=== PATIENT | female | born 1965 | race Caucasian/White ===

== ENCOUNTER 2021-03-30 09:08 | Inpatient (IN) | payer OTHER, SELFPAY ==
[2021-03-30] VITALS (10 sets, daily range): BP systolic 115–156; BP diastolic 76–86; PULSE 72–97; RESP 18–22; TEMP 36.9–38.9; O2SAT 85–99; BMI 41.3
--- NOTE | 2021-03-30 09:39 | CT_ITS ---
WS: [id number] CTA OF THE CHEST WITH PULMONARY EMBOLISM PROTOCOL TECHNIQUE: High-resolution contrast enhanced CTA of the chest with coronal and sagittal reformatted i mages with pulmonary embolism protocol. MIP images are also reviewed. CLINICAL INFORMATION: dyspnea COMPARISON: None. DLP: 506.[address] scans at [facility] use at least one of these dose optimization techniques: automated e xposure control; mA and/or kV adjustment per patient size (includes targeted exams where dose is matc hed to clinical indication); or iterative reconstruction. FINDINGS: Proximal main pulmonary arteries are normal. Normal segmental and subsegmental pulmonary arteries. Di stal most pulmonary arteries not well evaluated due to breathing artifact and body habitus. Cardiomeg maureen. Shallow inspiration. Bilateral patchy groundglass infiltrates mainly in the perihilar and upper lobe distribution suspicio us for COVID 19 pneumonia. Recommend correlation for viral pneumonia. No focal consolidation or pleural fluid. Bilateral perihilar bronchovascular thickening. Nodular left thyroid. No mediastinal or hilar lymphadenopathy. No axillary lymphadenopathy. Adrenal glands are normal. Hepatomegaly. Diffuse fatty infiltration. Cholecystectomy clips. Splenomeg maureen. Small esophageal hiatal hernia. Mild thoracic curve. Hypertrophic changes thoracic spine. CT/CT angio chest PE protcl [id number] IMPRESSION: 1. No evidence of pulmonary embolus. 2. Bilateral groundglass infiltrates suspicious for COVID 19 Pneumonia. No foc al pneumonia or pleural fluid. 3. Shallow inspiration. Cardiomegaly. 4. Hepatomegaly with diffuse fatty infiltration and splenomegaly.
--- NOTE | 2021-03-30 09:40 | XR_ITS ---
WS: [id number] Exam: XR chest 1V portable [id number] Date/Time of Exam: 03/30/2021 9:46 AM Reason For Exam: dyspnea/cough No priors. Patchy airspace infiltrates seen throughout both lungs most prevalent on the right. Cardiomediastinal silhouette is unremarkable for technique. No pleural effusion or pneumothorax. Bony structures are i ntact. XR/XR chest 1V portable [id number] IMPRESSION: 1. Patchy airspace infiltrates seen throughout both lungs suggesting acute pneu monia. The pattern is nonspecific but this could be seen with Covid pneumonia.
--- NOTE | 2021-03-30 09:41 | ECG_ITS ---
[facility] Test Date: 2021-03-30 Pat Name: Mary Elise Department: Room: Gender: Female Vp [employer]: : 1965 Requested By: Thomas Monroy Order Number: [id number] Fang MD: Barbra Rees M.D. Measurements Intervals [place] Rate: 84 P: 36 OH: 179 QRS: -10 QRSD: 94 T: 29 QT: 360 QTc: 426 Interpretive Statements SINUS RHYTHM LOW QRS VOLTAGE IN PRECORDIAL LEADS [QRS DEFLECTION < 1.0 mV IN CHEST LEADS] POSSIBLE ANTERIOR MYOCARDIAL INFARCTION , PROBABLY OLD [30 ms Q WAVE IN V3/V4, OR R < 0.2 mV IN V4] POSSIBLE INFERIOR MYOCARDIAL INFARCTION , PROBABLY OLD [30 ms Q WAVE IN II/aVF] No previous ECG available for comparison Electronically Signed On 03-30-2021 22:42:59 MOGUL OPERATOR by Barbra Rees M.D. [id number]
--- NOTE | 2021-03-30 09:47 | ED_ITS ---
HPI - COVID General: Chief Complaint: ER Hold Stated Complaint: SOB Time Seen by Provider: 03/30/21 09:30 Triage information: Has fever, cough or shortness of breath . Exposure to COVID + person last 14 days History of Present Illness: HPI Narrative: 55-year-old female presents emergency room with increasing shortness of breath. Patient had onset of symptoms 1 week ago 5 days ago tested positive for Covid. Initially she did not require oxygen on a follow-up visit patient did require oxygen. She has a history of atrial fibrillation and is also on flecainide. She denies any chest pain or tightness. She has been monitoring her saturations at home. She has noted saturations in the 80s while at home. On arrival here she noted to be 102.5 oxygen saturation of 85% on room air. She has other typical Covid symptoms including myalgias anosmia initial diarrhea which has resolved. complaint: known COVID positive Prior testing date: 03/24/21 COVID 19 common symptoms: positive fever(s), chills, cough, non-productive cough, dyspnea, fatigue, body aches, headache(s), loss of sense of smell and/or taste, throat pain, nasal congestion, nausea, vomiting and diarrhea COVID 19 other sytmptoms: negative chest pain or requiring oxygen Onset (ago): day(s) (9) Severity: mild Pertinent comorbid conditions: hypertension and obesity Treatment prior to arrival: acetaminophen COVID Results: No Data to Display Review of Systems Const: Reports: fever(s), chills, body aches and fatigue ENMT: Reports: throat pain and nasal congestion Card: Denies: chest pain, edema, dyspnea on exertion or orthopnea Resp: Reports: dyspnea and non-productive cough GI: Reports: nausea, vomiting and diarrhea : Denies: flank pain, difficulty voiding, dysuria, urinary frequency or urinary urgency Skin/Breast: Denies: rash or pruritus Neuro: Reports: headache(s) PFSH ED PFSH: Medical History (Updated 04/04/21 @ 06:11 by Thomas Kirkland DO) Hypertension Obesity Paroxysmal atrial fibrillation Port wine stain Surgical History (Updated 03/30/21 @ 12:35 by Eric Winters MD) History of cholecystectomy Social History (Updated 03/30/21 @ 12:36 by Eric Winters MD) Smoking and tobacco status: never smoked Alcohol intake: current Alcohol intake frequency: few times a month Physical Exam 2 Const: GENERAL APPEARANCE: cooperative and comfortable ORIENTATION/CONSCIOUSNESS: Yes awake, Yes oriented to person, Yes oriented to place and Yes oriented to time HENMT: COMMON NORMALS: normocephalic, atraumatic and hearing grossly normal bilaterally HEAD & SCALP: normocephalic and atraumatic Neck/C-Spine: COMMON NORMALS: no JVD Resp: AUSCULTATION: rhonchi and wheezes Cardio: COMMON NORMALS: no JVD, regular rate, regular rhythm and No murmurs present (Cardio) RATE: regular rate RHYTHM: regular rhythm GI: COMMON NORMALS: Soft to palpation and No hepatosplenomegaly present AUSCULTATION: Yes normoactive bowel sounds PALPATION: Yes Soft to palpation, No Tenderness to palpation present (GI), No Guarding due to palpation present (GI) and Yes No hepatosplenomegaly present Extremity: COMMON NORMALS: normal to inspection, capillary refill normal, no clubbing, cyanosis or edema, no calf tenderness and no pedal edema Neuro: SENSORIUM/ORIENTATION: Yes oriented to person, Yes oriented to place and Yes oriented to time Skin: COMMON NORMALS: no rashes or lesions noted GENERAL SKIN EXAM: no rashes or lesions noted Course Vital Signs: Vital signs: Vital Signs Temperature 98.5 F 04/04/21 04:00 Pulse Rate 74 04/04/21 04:00 Respiratory Rate 19 H 04/04/21 04:00 Blood Pressure 133/78 04/04/21 04:00 Pulse Oximetry 86 L 04/04/21 04:00 MDM - COVID MDM Narrative: Medical decision making narrative: Patient acutely ill with acute respiratory failure secondary to her Covid 19 pneumonitis. She also has significant risk factors hypertension obesity and her atrial fibrillation. We will go ahead and admit her to the hospital if initiated remdesivir and steroids. She is requiring significant oxygen support in the form of high flow nasal cannula. Discussed Dr. Winters orders written Lab Data: Labs: Lab Results 03/30/21 03/30/21 03/30/21 10:29 10:30 10:30 WBC RBC Hgb Hct MCV MCH MCHC RDW Plt Count MPV Neut % (Auto) Lymph % (Auto) [place] % (Auto) Eos % (Auto) Baso % (Auto) Neut # (Auto) Lymph # (Auto) [place] # (Auto) Eos # (Auto) Baso # (Auto) Nucleated RBC % (a uto) Nucleated RBCs # D-Dimer Cancelled Specimen Type Arterial Sample Site Radial, left ABG pH 7.48 H (7.35-7.45) ABG pCO2 39.6 mmHg mmHg (35-45) ABG pO2 79.1 mmHg L mmHg (80.0-100.0) ABG HCO3 29.1 mmol/L H mmo l/L (22-26) ABG O2 Saturation 96.6 ABG Base Excess 5.1 mmol/L H mmol /L (-2.0-2.0) Pablo Test Pos A-a O2 Gradient 12.9 mmHg H mmHg (5-10) Hematocrit 42.0 % % (37-47) Hgb O2 Saturation 95.0 % % (95-100) Carboxyhemoglobin 1.0 %THgb %THgb (0.4-20.1) Methemoglobin 0.7 % % (0.4-1.5) Total Hemoglobin 13.7 g/dL g/dL (12-16) Sodium 133.0 mmol/L mmol /L Cancelled (131-143) Potassium 3.9 mmol/L mmol/L Cancelled (3.5-5.0) Glucose 179.0 mg/dL H mg/ dL Cancelled (70-115) Ionized Calcium 1.1 mmol/L mmol/L (1.1-1.4) O2 Delivery Device Nc O2 Liters/Min 3.0 % % FiO2 32.0 % % Swimming Pool Service Technician ID Cak Chloride Cancelled Carbon Dioxide Cancelled Anion Gap Cancelled BUN Cancelled Creatinine Cancelled GFR Calculation Cancelled Estimat Average Gl ucose Hemoglobin A1c Calculated Osmolal ity Cancelled Lactic Acid Calcium Cancelled Total Bilirubin Cancelled AST Cancelled ALT Cancelled Alkaline Phosphata se Cancelled C-Reactive Protein Cancelled NT-Pro-B Natriuret Pep Total Protein Cancelled Albumin Cancelled Globulin Cancelled Procalcitonin TSH Urine Color Urine Appearance Urine pH Ur Specific Gravit y Urine Protein Urine Glucose (UA) Urine Ketones Urine Blood Urine Nitrate Urine Bilirubin Urine Urobilinogen Ur Leukocyte Ella ase 03/30/21 03/30/21 03/30/21 10:30 10:30 10:30 WBC 5.2 10^3/uL 10^3/ uL (4.0-10.0) RBC 4.84 10^6/uL 10^6 /uL (4.1-5.3) Hgb 13.1 g/dL g/dL (11.5-15.3) Hct 41.9 % % (37.0-47.0) MCV 86.6 fl fl (81-99) MCH 27.1 pg L pg (28.0-34.0) MCHC 31.3 g/dL g/dL (30.0-36.0) RDW 23.6 % H % (12.1-15.1) Plt Count 212 10^3/cmm 10^3 /cmm (130-400) MPV 9.4 fL fL (7.4-10.4) Neut % (Auto) 77.0 % % Lymph % (Auto) 14.6 % % [place] % (Auto) 8.0 % % Eos % (Auto) 0.0 % % Baso % (Auto) 0.2 % % Neut # (Auto) 4.02 10^3/uL 10^3 /uL (1.8-7.7) Lymph # (Auto) 0.8 10^3/uL 10^3/ uL (0.8-4.8) [place] # (Auto) 0.4 10^3/uL 10^3/ uL (0.2-0.9) Eos # (Auto) 0.0 10^3/uL 10^3/ uL (0.0-0.8) Baso # (Auto) 0.0 10^3/uL 10^3/ uL (0.0-0.1) Nucleated RBC % (a uto) 0 % % Nucleated RBCs # 0.0 /100WBC /100W BC D-Dimer Specimen Type Sample Site ABG pH ABG pCO2 ABG pO2 ABG HCO3 ABG O2 Saturation ABG Base Excess Pablo Test A-a O2 Gradient Hematocrit Hgb O2 Saturation Carboxyhemoglobin Methemoglobin Total Hemoglobin Sodium Potassium Glucose Ionized Calcium O2 Delivery Device O2 Liters/Min FiO2 Swimming Pool Service Technician ID Chloride Carbon Dioxide Anion Gap BUN Creatinine GFR Calculation Estimat Average Gl ucose 249 Hemoglobin A1c 10.3 % H % (4.0-6.0) Calculated Osmolal ity Lactic Acid Cancelled Calcium Total Bilirubin AST ALT Alkaline Phosphata se C-Reactive Protein NT-Pro-B Natriuret Pep Total Protein Albumin Globulin Procalcitonin TSH Urine Color Urine Appearance Urine pH Ur Specific Gravit y Urine Protein Urine Glucose (UA) Urine Ketones Urine Blood Urine Nitrate Urine Bilirubin Urine Urobilinogen Ur Leukocyte Ella ase 03/30/21 03/30/21 03/30/21 10:30 10:45 11:48 WBC RBC Hgb Hct MCV MCH MCHC RDW Plt Count MPV Neut % (Auto) Lymph % (Auto) [place] % (Auto) Eos % (Auto) Baso % (Auto) Neut # (Auto) Lymph # (Auto) [place] # (Auto) Eos # (Auto) Baso # (Auto) Nucleated RBC % (a uto) Nucleated RBCs # D-Dimer Specimen Type Sample Site ABG pH ABG pCO2 ABG pO2 ABG HCO3 ABG O2 Saturation ABG Base Excess Pablo Test A-a O2 Gradient Hematocrit Hgb O2 Saturation Carboxyhemoglobin Methemoglobin Total Hemoglobin Sodium Potassium Glucose Ionized Calcium O2 Delivery Device O2 Liters/Min FiO2 Swimming Pool Service Technician ID Chloride Carbon Dioxide Anion Gap BUN Creatinine GFR Calculation Estimat Average Gl ucose Hemoglobin A1c Calculated Osmolal ity Lactic Acid 0.9 mmol/L mmol/L (0.5-2.2) Calcium Total Bilirubin AST ALT Alkaline Phosphata se C-Reactive Protein NT-Pro-B Natriuret Pep 34 pg/mL pg/mL (0-125) Total Protein Albumin Globulin Procalcitonin 0.05 ng/mL ng/mL (0-0.5) TSH 0.83 uIU/mL uIU/m L (0.27-4.20) Urine Color Dark yellow (Yellow) Urine Appearance Clear (CLEAR) Urine pH 5 (5-7) Ur Specific Gravit y 1.020 (1.005-1.030) Urine Protein 1+ H (Negative) Urine Glucose (UA) Norm (Normal) Urine Ketones 1+ H (Negative) Urine Blood Neg (Negative) Urine Nitrate Negative (Negative) Urine Bilirubin Neg (Negative) Urine Urobilinogen Norm mg/dL mg/dL (Negative) Ur Leukocyte Ella ase Negative (Negative) 03/30/21 03/30/21 11:48 11:48 WBC RBC Hgb Hct MCV MCH MCHC RDW Plt Count MPV Neut % (Auto) Lymph % (Auto) [place] % (Auto) Eos % (Auto) Baso % (Auto) Neut # (Auto) Lymph # (Auto) [place] # (Auto) Eos # (Auto) Baso # (Auto) Nucleated RBC % (a uto) Nucleated RBCs # D-Dimer 0.35 ug/mIFEU ug/ mIFEU (0-0.59) Specimen Type Sample Site ABG pH ABG pCO2 ABG pO2 ABG HCO3 ABG O2 Saturation ABG Base Excess Pablo Test A-a O2 Gradient Hematocrit Hgb O2 Saturation Carboxyhemoglobin Methemoglobin Total Hemoglobin Sodium 130 mmol/L L mmol /L (136-145) Potassium 4.4 mmol/L mmol/L (3.5-5.1) Glucose 179 mg/dL H mg/dL (65-115) Ionized Calcium O2 Delivery Device O2 Liters/Min FiO2 Swimming Pool Service Technician ID Chloride 92 mmol/L L mmol/ L (98-107) Carbon Dioxide 27 mmol/L mmol/L (22-29) Anion Gap 15.4 (5-19) BUN 10 mg/dL mg/dL (6-20) Creatinine 0.6 mg/dL mg/dL (0.5-0.9) GFR Calculation 103.8 mL/min mL/m in (90-130) Estimat Average Gl ucose Hemoglobin A1c Calculated Osmolal ity 274 mOsm/kg L mOs m/kg (285-295) Lactic Acid Calcium 8.0 mg/dL L mg/dL (8.5-10.5) Total Bilirubin 0.4 mg/dL mg/dL (0.15-1.2) AST 31 U/L U/L (0-32) ALT 31 U/L U/L (0-33) Alkaline Phosphata se 50 IU/L IU/L (35-105) C-Reactive Protein 75.9 mg/L H mg/L (0.0-4.9) NT-Pro-B Natriuret Pep Total Protein 7.1 g/dL g/dL (6.6-8.7) Albumin 3.6 g/dL g/dL (3.5-5.2) Globulin 3.5 g/dL g/dL (1.3-4.6) Procalcitonin TSH Urine Color Urine Appearance Urine pH Ur Specific Gravit y Urine Protein Urine Glucose (UA) Urine Ketones Urine Blood Urine Nitrate Urine Bilirubin Urine Urobilinogen Ur Leukocyte Ella ase COVID Results: No Data to Display Discharge Plan Discharge Patient Disposition: Home Clinical Impression: Pneumonia due to COVID-19 virus, Paroxysmal atrial fibrillation, Hypertension, Acute respiratory failure with hypoxia Condition: Stable Coding Level of Care Code ED Technical Marketing Consultant for [employer] Fwd Exam Comprehensive
[2021-03-30] MEDS: dexamethasone 10 mg/mL INJ 6 MG IVP (10:30)
[2021-03-30] MEDS: ondansetron 2 mg/ML SDV 2 mL 4 MG IVP (10:30)
[2021-03-30 10:40] LABS: ABG PCO2 39.6 mmHg (35-45); ABG PH Result 7.48 (7.35-7.45); Alveolar-Arterial Oxygen Gradi 12.9 mmHg (5-10); Base Excess ABG 5.1 mmol/L (-2.0-2.0); Blood Gas Allen Test Pos; Blood Gas Operator Identificat CAK; Blood Gas Sample Site Radial, left; Blood Gas Sample Type Arterial; HCO3 ABG 29.1 mmol/L (22-26); Ionized Calcium Level - ABG 1.1 mmol/L (1.1-1.4); Methemoglobin 0.7 % (0.4-1.5); Oxygen Device NC; Oxygen Saturation ABG 96.6; PO2 ABG 79.1 mmHg (80.0-100.0); Potassium Level - ABG 3.9 mmol/L (3.5-5.0); Total Hemoglobin 13.7 g/dL (12-16)
[2021-03-30 10:43] LABS: Basophils % 0.2 %; Hematocrit 41.9 % (37.0-47.0); Hemoglobin 13.1 g/dL (11.5-15.3); Lymphocytes # 0.8 10^3/uL (0.8-4.8); Lymphocytes % 14.6 %; Mean Corpuscular HGB Conc 31.3 g/dL (30.0-36.0); Mean Corpuscular Hemoglobin 27.1 pg (28.0-34.0); Mean Corpuscular Volume 86.6 fl (81-99); Mean Platelet Volume 9.4 fL (7.4-10.4); Monocytes # 0.4 10^3/uL (0.2-0.9); Neutrophils # 4.02 10^3/uL (1.8-7.7); Nucleated Red Blood Cells % 0 %; Platelet Count 212 10^3/cmm (130-400); Red Blood Count 4.84 10^6/uL (4.1-5.3); Red Cell Distribution Width 23.6 % (12.1-15.1); White Blood Count 5.2 10^3/uL (4.0-10.0)
[2021-03-30] MEDS: iohexol 350 mg/mL 100 mL Btl IV (11:08)
[2021-03-30 11:38] LABS: Add Urine Microscopic? NO; Charge for UA Resulting for Rev
[2021-03-30 11:40] LABS: Glucose Urine UA Norm (Normal); Ketones Urine 1+ (Negative); Protein Urine 1+ (Negative); Urine Appearance Clear (CLEAR); Urine Color Dark Yellow (Yellow); pH Urine 5 (5-7)
[2021-03-30 11:41] LABS: Bilirubin Urine Neg (Negative); Blood Urine Neg (Negative); Leukocyte Esterase Urine Negative (Negative); Nitrate Urine Negative (Negative); Urobilinogen Urine Norm (Negative)
[2021-03-30 12:13] LABS: D Dimer 0.35 ug/mIFEU (0-0.59)
[2021-03-30 12:17] LABS: Lactic Sepsis W/Reflex 0.9 mmol/L (0.5-2.2)
[2021-03-30 12:29] LABS: Alanine Aminotransferase 31 U/L (0-33); Albumin Level 3.6 g/dL (3.5-5.2); Alkaline Phosphatase 50 IU/L (35-105); Anion Gap 15.4 (5-19); Aspartate Amino Transferase 31 U/L (0-32); Blood Urea Nitrogen 10 mg/dL (6-20); C Reactive Protein 75.9 mg/L (0.0-4.9); Carbon Dioxide 27 mmol/L (22-29); Chloride 92 mmol/L (98-107); Creatinine Clr Calc Pharmacy 151.3945; Globulin 3.5 g/dL (1.3-4.6); Glomerular Filtration Rate 103.8 mL/min (90-130); Glucose 179 mg/dL (65-115); Osmolality Calculated 274 mOsm/kg (285-295); Potassium 4.4 mmol/L (3.5-5.1); Sodium 130 mmol/L (136-145); Total Bilirubin 0.4 mg/dL (0.15-1.2); Total Protein 7.1 g/dL (6.6-8.7)
--- NOTE | 2021-03-30 12:32 | PM.HP ---
Providers/Chief Complaint Admitting Physician: Eric Winters MD Chief Complaint: SOB History of Present Illness Mary Elise is a 55 year old female who presents to the emergency department with history of Covid since around March 22. She states she had a positive test at [facility] on March 24. She has had symptoms of fever, anorexia, cough, shortness of breath, loss of smell. Symptoms worsened to where she was started on home oxygen 2 days ago, and worsened further still. She has not been vaccinated. Review of Systems General: Reports: 10 or more systems reviewed and unremarkable except in HPI and below Const: Reports: fever(s), fatigue and malaise Eyes: Denies: change in vision ENMT: Denies: throat pain Card: Denies: chest pain Resp: Reports: dyspnea and productive cough GI: Reports: constipation; Denies: abdominal pain or vomiting : Denies: flank pain Musc: Denies: neck pain Skin/Breast: Denies: rash Neuro: Denies: headache(s) Psych: Denies: anxiety Endo: Denies: polyuria Delvin/Lymph: Denies: easy bruising All/Imm: Denies: urticaria Medications/Allergies Home Medications Medication Instructions Recorded Confirmed Last Taken Type acetaminophen [Tylenol Ex Str 1,000 mg PO Q4H PRN 03/30/21 03/30/21 03/29/21 History Rapid Release] flecainide 150 mg PO BID PRN 03/30/21 03/30/21 Unknown History hydroxychloroquine 200 mg PO BID 03/30/21 03/30/21 03/25/21 History lisinopril 10 mg PO BID 03/30/21 03/30/21 Unknown History Allergies Allergy/AdvReac Type Severity Reaction Status Date / Time Penicillins Allergy ALGY-Rash Verified 03/30/21 10:17 PFSH Acute PFSH: Medical History (Updated 03/30/21 @ 12:41 by Eric Winters MD) Hypertension Obesity Paroxysmal atrial fibrillation Port wine stain Surgical History (Updated 03/30/21 @ 12:35 by Eric Winters MD) History of cholecystectomy Social History (Updated 03/30/21 @ 12:36 by Eric Winters MD) Smoking and tobacco status: never smoked Alcohol intake: current Alcohol intake frequency: few times a month Vitals/I&O/Wt Last Vital Signs Temp 102.1 F H 03/30/21 09:29 Pulse 97 03/30/21 10:49 Resp 20 H 03/30/21 10:49 BP 115/78 03/30/21 10:49 Pulse Ox 99 03/30/21 11:02 Weight last 48 hrs Weight 127.006 kg Physical Exam Narrative: EXAM NARRATIVE: General exam is a female, in mild respiratory distress with a respiratory rate of 20 on 4 L of oxygen with a saturation of 92% HEENT: Atraumatic normocephalic. Pupils equally round. Oropharynx clear. Port wine stain is noted left side of face. Neck is supple no lymphadenopathy or thyromegaly Cardiovascular regular rate and rhythm, no murmur Lungs a few faint expiratory wheezes. Diminished breath sounds bilaterally. A few faint crackles. Abdomen is soft, obese. Positive bowel sounds. No obvious organomegaly is deferred Extremities no cyanosis clubbing or edema, cap refill brisk Skin no rash Neuro no focal deficits Data : 03/30/21 10:30 03/30/21 11:48 Micro: Microbiology 03/30/21 10:30 Blood Culture - Preliminary Blood SPECIMEN COLLECTED 03/30/21 10:30 Blood Culture - Preliminary Blood SPECIMEN COLLECTED Other data: Dimer is 0.35 ABG demonstrates pH 7.48, PCO2 40, PO2 79 LFTs normal CRP 75.9 Urinalysis negative Chest x-ray patchy infiltrate consistent with Covid CTA no pulmonary embolism, bilateral infiltrates consistent with Covid, cardiomegaly, hepatomegaly with fatty infiltration and splenomegaly A&P Assessment and plan (1) Pneumonia due to COVID-19 virus: Remdesivir, dexamethasone If worsens quickly consider Actemra. CRP 75 currently. Incentive spirometry Prone while sleeping Discussed with her potential intubation she continues to progress. Currently where she reports she does not want intubation or mechanical ventilation, but of course if respiratory status continues to worsen this would need revisited. Doxycycline empirically Secondary to patient's reported significant sputum production will check procalcitonin, MRSA PCR, bacterial antigens Status: Acute (2) Paroxysmal atrial fibrillation: Patient reports the use of flecainide as needed. Telemetry is indicated. Status: Acute (3) Hypertension: Patient stopped her lisinopril several days ago. As blood pressure is within normal limits we will not restart currently. Status: Acute (4) Port wine stain: No particular treatment is needed currently. She does report this can bleed easily, and will therefore need to be monitored when anticoagulation for DVT prophylaxis is initiated. Status: Acute Additional A&P Information Cardiomegaly seen on CT. In view of cardiomegaly, mild hyponatremia will check BNP. See below Hyponatremia, likely secondary to acute illness. Check BNP. If elevated consider dose of Lasix. Check TSH. Hyperglycemia. Check hemoglobin A1c. When initiating steroids may require sliding scale insulin, consistent carb diet. Patient does not want to be on ventilator. Certainly this will need to be reapproach should her respiratory status worsen Lovenox for DVT prophylaxis Attestations Medical Necessity Statement*: Will need greater than 2 midnight stay secondary to severe COVID-19 infection with pneumonia requiring oxygen Time Spent in Patient Care: Greater than 35 minutes Coding Level of Care Code Acute Precision L[employer] Generator for Florentin Godinez Diagnoses Pneumonia due to COVID-19 virus U07.1; J12.82 Paroxysmal atrial fibrillation I48.0 Hypertension I10 Port wine stain Q82.5
[2021-03-30 13:25] LABS: NT Pro B Type Natriuretic Pept 34 pg/mL (0-125); Procalcitonin 0.05 ng/mL (0-0.5); Thyroid Stimulating Hormone 0.83 uIU/mL (0.27-4.20)
[2021-03-30 15:47] LABS: Estmated Average Glucose 249; Hemoglobin A1C 10.3 % (4.0-6.0)
[2021-03-30] MEDS: enoxaparin 40 mg/0.4 mL Syringe SUBCUT (18:20)
[2021-03-30] MEDS: doxycycline 100 mg Tablet PO (18:21)
[2021-03-30] MEDS: remdesivir 200 MG in sodium chloride 0.9% (100 ml) 60 ML 100 MG IV (21:36)
[2021-03-31] VITALS (13 sets, daily range): BP systolic 108–133; BP diastolic 60–76; PULSE 63–91; RESP 18–23; TEMP 37–37.9; O2SAT 90–92
[2021-03-31] MEDS: acetaminophen 325 mg Tablet 650 MG PO (02:31)
[2021-03-31 07:06] LABS: Basophils % 0.2 %; Hematocrit 40.8 % (37.0-47.0); Hemoglobin 12.8 g/dL (11.5-15.3); Lymphocytes % 17.2 %; Mean Corpuscular HGB Conc 31.4 g/dL (30.0-36.0); Mean Corpuscular Hemoglobin 26.5 pg (28.0-34.0); Mean Corpuscular Volume 84.5 fl (81-99); Mean Platelet Volume 9.9 fL (7.4-10.4); Monocytes # 0.4 10^3/uL (0.2-0.9); Monocytes % 7.3 %; Neutrophils # 4.41 10^3/uL (1.8-7.7); Nucleated Red Blood Cells % 0 %; Platelet Count 222 10^3/cmm (130-400); Red Blood Count 4.83 10^6/uL (4.1-5.3); White Blood Count 5.9 10^3/uL (4.0-10.0)
[2021-03-31 07:38] LABS: Alanine Aminotransferase 26 U/L (0-33); Albumin Level 3.3 g/dL (3.5-5.2); Alkaline Phosphatase 44 IU/L (35-105); Anion Gap 17.2 (5-19); Aspartate Amino Transferase 26 U/L (0-32); Blood Urea Nitrogen 13 mg/dL (6-20); C Reactive Protein 73.4 mg/L (0.0-4.9); Carbon Dioxide 25 mmol/L (22-29); Chloride 93 mmol/L (98-107); Globulin 3.6 g/dL (1.3-4.6); Glomerular Filtration Rate 86.9 mL/min (90-130); Glucose 140 mg/dL (65-115); Osmolality Calculated 274 mOsm/kg (285-295); Potassium 4.2 mmol/L (3.5-5.1); Sodium 131 mmol/L (136-145); Total Bilirubin 0.2 mg/dL (0.15-1.2); Total Protein 6.9 g/dL (6.6-8.7)
[2021-03-31] MEDS: dexamethasone 10 mg/mL INJ 6 MG IVP (07:51)
[2021-03-31] MEDS: doxycycline 100 mg Tablet PO (07:51)
--- NOTE | 2021-03-31 08:58 | PM.PN ---
Subjective Subjective: Interval history: Mary had increasing oxygen requirement over the night. She reports she still feels cold. She is short of breath with any exertion. I discussed with her briefly her directive of no intubation or mechanical ventilation yesterday and she still confirms this. Patient reports her urine is dark. Medications: Reviewed: Yes Vitals/I&O/Wt Last Vital Signs Temp 99.3 F 03/31/21 04:00 Pulse 89 03/31/21 07:50 Resp 23 H 03/31/21 07:50 BP 108/60 03/31/21 04:00 Pulse Ox 92 03/31/21 07:50 03/30/21 03/31/21 03/31/21 22:59 06:59 14:59 Intake Total 100 / 100 Balance 100 / 100 Weight last 48 hrs Weight 127.006 kg Physical Exam Narrative: EXAM NARRATIVE: General exam moderate respiratory distress noted with a saturation of 85% initially after walking from the bathroom without oxygen. She was placed back on 10 L and oxygen saturation gradually increased to 90%. Respiratory rate during this timeframe was 30 with use of accessory muscles until the 10 L of oxygen was placed per nasal cannula. Neck is supple no lymphadenopathy or thyromegaly Cardiovascular regular rate and rhythm, no murmur Lungs no wheezing. A few dry crackles bilaterally. Abdomen is soft, obese. Positive bowel sounds. No obvious organomegaly Extremities no cyanosis clubbing or edema, cap refill brisk Data : 03/31/21 06:28 03/31/21 06:28 Micro: Microbiology 03/30/21 10:30 Blood Culture - Preliminary Blood SPECIMEN COLLECTED 03/30/21 10:30 Blood Culture - Preliminary Blood SPECIMEN COLLECTED A&P Assessment and plan (1) Pneumonia due to COVID-19 virus: Remdesivir, dexamethasone to continue Actemra today Prone while sleeping Up and out of bed today, encouraged to use incentive spirometry Continue Combivent Discussed with her potential intubation she continues to progress. Currently where she reports she does not want intubation or mechanical ventilation, but of course if respiratory status continues to worsen this would need revisited. Change empiric doxycycline to Levaquin secondary to patient's significant worsening overnight Procalcitonin level was normal. MRSA PCR, bacterial antigens pending Secondary to worsening hypoxia, mild hyponatremia we will give a dose of Lasix 20 mg IV Status: Acute (2) Paroxysmal atrial fibrillation: Patient reports the use of flecainide as needed. Telemetry to be continued. No arrhythmias seen currently. Status: Acute (3) Hypertension: Patient stopped her lisinopril several days ago. As blood pressure is within normal limits we will not restart currently. Status: Acute (4) Port wine stain: No particular treatment is needed currently. She does report this can bleed easily, and will therefore need to be monitored when anticoagulation for DVT prophylaxis is initiated. Status: Acute Additional A&P Information Acute hypoxic respiratory failure, present on admission, worsening, demonstrated by an oxygen saturation of 85%, accessory muscle use, tachypnea, when patient took off oxygen to go to the bathroom and come back. This has worsened since yesterday on admission. Cardiomegaly seen on CT. In view of cardiomegaly, mild hyponatremia BNP was checked and normal Hyponatremia, likely secondary to acute illness. BNP was checked and normal. TSH normal. Hyperglycemia. Hemoglobin A1c significantly elevated. Consistent with diabetes. Sliding scale insulin initiated. Dark urine. Check creatinine kinase Patient does not want to be on ventilator. Certainly this will need to be reapproach should her respiratory status worsen Lovenox for DVT prophylaxis Attestations Medical Necessity Statement*: Needs continued hospital stay secondary to severe COVID-19 pneumonia Coding Level of Care Code Acute Grain Miller Helper for [facility] Diagnoses Pneumonia due to COVID-19 virus U07.1; J12.82 Paroxysmal atrial fibrillation I48.0 Hypertension I10 Port wine stain Q82.5
[2021-03-31 09:48] LABS: Creatine Phosphokinase 114 U/L (26-192)
[2021-03-31] MEDS: levofloxacin-dextrose 5 % 750 MG/150 ML PREMIX 100 MG IV (09:54)
[2021-03-31 13:16] LABS: Glucose Point of Care 242 mg/dL (70-110)
[2021-03-31] MEDS: insulin lispro 100 unit/1 mL SUBCUT ×3 (13:32→21:31)
[2021-03-31] MEDS: famotidine 20 mg Tablet PO (13:33)
[2021-03-31] MEDS: tocilizumab 800 MG in sodium chloride 0.9% (100 ml) 100 ML 100 MG IV (14:27)
[2021-03-31] MEDS: enoxaparin 40 mg/0.4 mL Syringe SUBCUT (17:39)
[2021-03-31] MEDS: remdesivir 100 MG in sodium chloride 0.9% (100 ml) 80 ML IV (17:39)
[2021-03-31 18:21] LABS: Glucose Point of Care 215 mg/dL (70-110)
[2021-03-31 21:04] LABS: Glucose Point of Care 225 mg/dL (70-110)
[2021-04-01] VITALS (11 sets, daily range): BP systolic 110–134; BP diastolic 67–84; PULSE 68–89; RESP 17–24; TEMP 36.6–37.1; O2SAT 88–93
[2021-04-01 06:51] LABS: Glucose Point of Care 136 mg/dL (70-110)
[2021-04-01 07:37] LABS: Albumin Level 3.3 g/dL (3.5-5.2); Alkaline Phosphatase 43 IU/L (35-105); Blood Urea Nitrogen 17 mg/dL (6-20); Calcium 8.3 mg/dL (8.5-10.5); Carbon Dioxide 23 mmol/L (22-29); Chloride 94 mmol/L (98-107); Creatinine Clr Calc Pharmacy 151.3945; Globulin 3.6 g/dL (1.3-4.6); Glomerular Filtration Rate 103.8 mL/min (90-130); Glucose 135 mg/dL (65-115); Osmolality Calculated 280 mOsm/kg (285-295); Sodium 133 mmol/L (136-145); Total Bilirubin 0.2 mg/dL (0.15-1.2); Total Protein 6.9 g/dL (6.6-8.7)
[2021-04-01 07:38] LABS: Alanine Aminotransferase 25 U/L (0-33); Anion Gap 20.3 (5-19); Aspartate Amino Transferase 31 U/L (0-32); Potassium 4.3 mmol/L (3.5-5.1)
[2021-04-01] MEDS: levofloxacin-dextrose 5 % 750 MG/150 ML PREMIX 100 MG IV (08:10)
[2021-04-01] MEDS: dexamethasone 10 mg/mL INJ 6 MG IVP (08:11)
[2021-04-01] MEDS: famotidine 20 mg Tablet PO ×2 (08:11→17:46)
--- NOTE | 2021-04-01 08:13 | P.PN_ITS ---
Subjective Subjective: Interval history: Mary reports she does not really feel any better. She still has some nausea. Urine is cleared up. She has had a little bit of vaginal spotting. We discussed potential work-up for this but she does not want to undergo any type of ultrasound currently. Medications: Reviewed: Yes Vitals/I&O/Wt Last Vital Signs Temp 98.4 F 04/01/21 07:40 Pulse 71 04/01/21 07:40 Resp 21 H 04/01/21 07:40 BP 110/72 04/01/21 07:40 Pulse Ox 91 04/01/21 07:40 03/31/21 04/01/21 04/01/21 22:59 06:59 14:59 Intake Total 220 / 370 Balance 220 / 370 Weight last 48 hrs Weight 127.006 kg Physical Exam Narrative: EXAM NARRATIVE: General exam is a white female, on 10 L of oxygen, with occasional coughing and mild respiratory distress with respiratory rate of 21. No accessory muscle use today. Cardiovascular regular rate and rhythm, no murmur Lungs no wheezing. A few dry crackles bilaterally. Abdomen is soft, obese. Positive bowel sounds. No obvious organomegaly Extremities no cyanosis clubbing or edema, cap refill brisk Data : 03/31/21 06:28 04/01/21 06:10 Micro: Microbiology 03/30/21 23:08 Gram Stain - Final Sputum - Expectorated Sputum 03/30/21 10:30 Blood Culture - Preliminary Blood NEGATIVE TO DATE 03/30/21 10:30 Blood Culture - Preliminary Blood NEGATIVE TO DATE 03/30/21 10:45 Bacterial Antigens - Final Urine,Clean Catch A&P Assessment and plan (1) Pneumonia due to COVID-19 virus: Remdesivir, dexamethasone to continue Actemra March 31 Prone while sleeping Up and out of bed today, encouraged to use incentive spirometry Changed to nebulizer. Patient request that she believes the medication is helping. Discussed with her potential intubation she continues to progress. Currently where she reports she does not want intubation or mechanical ventilation, but of course if respiratory status continues to worsen this would need revisited. Continue Levaquin empirically. Sputum culture pending. Procalcitonin level was normal. MRSA PCR pending. Bacterial antigens negative. Received 1 dose of Lasix March 31 without any significant clinical change. Status: Acute (2) Paroxysmal atrial fibrillation: Patient reports the use of flecainide as needed. Telemetry to be co ntinued. No arrhythmias seen currently. Status: Acute (3) Hypertension: Patient stopped her lisinopril several days ago. As blood pressure is within normal limits we will not restart currently. Status: Acute (4) Port wine stain: No particular treatment is needed currently. She does report this can bleed easily, and will therefore need to be monitored when anticoagulation for DVT prophylaxis is initiated. Status: Acute Additional A&P Information Acute hypoxic respiratory failure, present on admission, worsening, demonstrated by an oxygen saturation of 85%, accessory muscle use, tachypnea, when patient took off oxygen to go to the bathroom and come back. Significantly worsened since admission but about the same today. Minimal increase in oxygen requirement since yesterday afternoon. We will try to wean back down. Cardiomegaly seen on chest x-ray. In view of cardiomegaly, mild hyponatremia BNP was checked and normal Hyponatremia, likely secondary to acute illness. BNP was checked and normal. TSH normal. Overall improved. Hyperglycemia. Hemoglobin A1c significantly elevated. Consistent with diabetes. Sliding scale insulin initiated. Will need treatment recommendations upon discharge. Consistent carb diet. Dark urine. Urinalysis and creatinine kinase normal Some vaginal spotting. Patient refuses work-up currently. Encouraged her to consider imaging such as ultrasound and pelvic exam showed spotting continue after acute illness Reflux. Pepcid initiated. Patient does not want to be on ventilator. Certainly this will need to be reapproach should her respiratory status worsen Lovenox for DVT prophylaxis She requests a grapefruit, and a multivitamin. We will try to make this happen. Attestations Medical Necessity Statement*: Needs continued hospitalization for severe COVID-19 pneumonia with hypoxia. Coding Level of Care Code Acute Parakeet Raiser for [facility] Diagnoses Pneumonia due to COVID-19 virus U07.1; J12.82 Paroxysmal atrial fibrillation I48.0 Hypertension I10 Port wine stain Q82.5
[2021-04-01 10:57] LABS: Glucose Point of Care 267 mg/dL (70-110)
[2021-04-01] MEDS: multivitamin therapeutic Tablet 1 TAB PO (12:15)
[2021-04-01] MEDS: insulin lispro 100 unit/1 mL SUBCUT ×3 (12:15→22:29)
--- NOTE | 2021-04-01 13:24 | PC.CHAP ---
Pastoral Care Encounter/Spiritual Assessment Type of Contact [] Declined station captain visit [] Patient/Family/Request visit [] Outpatient visit [] Follow-up visit [] Physician referral [] Code/Alert [xx] Routine visit [] Staff referral [] Actively dying [] Patient sleeping [] Family support [] [] Out of room [] Palliative care [] [] Receiving care in room [] Pre-surgical visit [] Trauma [] Long length of stay [] ICU visit [xx] Other: ISOLATION Relational/Emotional Strength [] Patient feels connected with others/family/visitors/staff [] Distress [] Loneliness/isolation [] Abandonment Spirituality of Patient [] Person of Cynthia [] Attends Yarsani of their Cynthia [] Believes in Prayer [] Reads Bible or Samaritan materials [] There are Spiritual issues to be addressed Lockstitch Binder Interventions [] Prayer [] Active listening [] Non-anxious presence [] Spiritual/emotional support [] Crisis/trauma care [] Spiritual counseling [] Bereavement support [] Provided bereavement packet [] Provided Bible/devotional materials [] Provided toy/stuffed animal, coloring book to patient or family member [] Provided Communion [] Anointing/[place] [] Salvation [] Completed spiritual assessment [] Other: Impact on Illness or Injury [] Angry [] Fearful [] Anxious [] Often cries [] Exhaustion [] Unable to work [] Unable to attend quaker [] Unable to walk/stand [] Unable to read [] Unable to drive [] Unable to eat/drink [] Unable to sleep [] Unable to be with family [] Patient intubated [] Other: Summary Time spent with patient
[2021-04-01] MEDS: ipratropium-albuterol 3 mL Neb INHALATION ×2 (14:12→21:47)
--- NOTE | 2021-04-01 16:11 | PC.NURSE ---
Nurse was notified about the O2 level of 88%
[2021-04-01 16:51] LABS: Glucose Point of Care 283 mg/dL (70-110)
[2021-04-01] MEDS: enoxaparin 40 mg/0.4 mL Syringe SUBCUT (17:46)
[2021-04-01] MEDS: remdesivir 100 MG in sodium chloride 0.9% (100 ml) 80 ML IV (17:47)
[2021-04-01 21:30] LABS: Glucose Point of Care 181 mg/dL (70-110)
[2021-04-01] MEDS: budesonide 0.5 mg/2 mL Neb INHALATION (21:46)
[2021-04-02] VITALS (13 sets, daily range): BP systolic 108–139; BP diastolic 69–84; PULSE 70–98; RESP 16–24; TEMP 36.8–37.5; O2SAT 86–95
[2021-04-02] MEDS: ipratropium-albuterol 3 mL Neb INHALATION ×3 (04:42→14:57)
[2021-04-02 06:40] LABS: Basophils % 0.3 %; Eosinophils % 0.5 %; Hematocrit 41.8 % (37.0-47.0); Lymphocytes # 0.9 10^3/uL (0.8-4.8); Lymphocytes % 24.9 %; Mean Corpuscular HGB Conc 31.1 g/dL (30.0-36.0); Mean Corpuscular Hemoglobin 26.3 pg (28.0-34.0); Mean Corpuscular Volume 84.6 fl (81-99); Mean Platelet Volume 9.2 fL (7.4-10.4); Monocytes # 0.3 10^3/uL (0.2-0.9); Monocytes % 7.6 %; Neutrophils # 2.45 10^3/uL (1.8-7.7); Neutrophils % 66.4 %; Nucleated Red Blood Cells % 0 %; Platelet Count 349 10^3/cmm (130-400); Red Blood Count 4.94 10^6/uL (4.1-5.3); Red Cell Distribution Width 12.8 % (12.1-15.1); White Blood Count 3.7 10^3/uL (4.0-10.0)
[2021-04-02 06:54] LABS: Alanine Aminotransferase 23 U/L (0-33); Albumin Level 3.2 g/dL (3.5-5.2); Alkaline Phosphatase 44 IU/L (35-105); C Reactive Protein 33.5 mg/L (0.0-4.9); Chloride 97 mmol/L (98-107); Potassium 4.5 mmol/L (3.5-5.1); Sodium 135 mmol/L (136-145)
[2021-04-02 06:58] LABS: Glucose Point of Care 126 mg/dL (70-110)
[2021-04-02 07:31] LABS: Anion Gap 19.5 (5-19); Aspartate Amino Transferase 28 U/L (0-32); Blood Urea Nitrogen 16 mg/dL (6-20); Calcium 8.3 mg/dL (8.5-10.5); Carbon Dioxide 23 mmol/L (22-29); Globulin 3.5 g/dL (1.3-4.6); Glomerular Filtration Rate 86.9 mL/min (90-130); Glucose 118 mg/dL (65-115); Osmolality Calculated 282 mOsm/kg (285-295); Total Bilirubin 0.3 mg/dL (0.15-1.2); Total Protein 6.7 g/dL (6.6-8.7)
[2021-04-02] MEDS: multivitamin therapeutic Tablet 1 TAB PO (08:34)
[2021-04-02] MEDS: dexamethasone 10 mg/mL INJ 6 MG IVP (08:34)
[2021-04-02] MEDS: levofloxacin-dextrose 5 % 750 MG/150 ML PREMIX 1500 MG IV (08:34)
[2021-04-02] MEDS: famotidine 20 mg Tablet PO ×2 (08:34→17:34)
[2021-04-02] MEDS: budesonide 0.5 mg/2 mL Neb INHALATION (09:40)
[2021-04-02 11:04] LABS: Glucose Point of Care 177 mg/dL (70-110)
[2021-04-02] MEDS: insulin lispro 100 unit/1 mL SUBCUT ×3 (12:00→21:35)
--- NOTE | 2021-04-02 15:57 | PM.PN ---
Subjective Subjective: Interval history: Patient was seen and examined this morning, she was endorsing fatigue and lethargy and was requesting to go home, currently she is on 8 L, I have decreased her FiO2 to 6 L, she was saturating 90 to 93% at rest, asked her to ambulate in the room and if her FiO2 stays below 5 L in next 24 hours can reevaluate for her discharge however she is not ready yet She cant do proning Roughly this is her 14th day of symptom she need to quarantine at least 1 more week Vitals/I&O/Wt Last Vital Signs Temp 98.2 F 04/02/21 11:01 Pulse 75 04/02/21 15:09 Resp 24 H 04/02/21 15:09 BP 110/69 04/02/21 11:01 Pulse Ox 89 L 04/02/21 15:09 04/02/21 04/02/21 04/02/21 06:59 14:59 22:59 Intake Total 280 / 910 1190 / 1190 Balance 280 / 910 1190 / 1190 Physical Exam Narrative: EXAM NARRATIVE: Morbidly obese female who was sitting in a recliner Saturating well on 6 L nasal cannula 90 to 93% S1, S2 Bilateral breath sound without rhonchi or crackles or crepitation Distended abdomen with obesity Lower extremity no edema EOMI: PERRLA Nonfocal neuro exam Data : 04/02/21 06:16 04/02/21 06:16 Micro: Microbiology 03/30/21 23:08 Gram Stain - Final Sputum - Expectorated Sputum Sputum Culture - Final A&P Assessment and plan (1) Port wine stain: Status: Acute (2) Hypertension: Status: Acute (3) Paroxysmal atrial fibrillation: Status: Acute (4) Pneumonia due to COVID-19 virus: Status: Acute Additional A&P Information Persistent hypoxia related to COVID-19 Currently doing well on 6 L nasal cannula Status post Actemra Continue IV steroids and Decadron Plan to discharge home if her O2 saturation stays between 90 to 93% on less than 5 L Asked her to monitor O2 saturation and walk in the room for about 4-5 minutes Afebrile for last 36 hours Hemodynamically stable Endorsing fatigue and lethargy No diarrhea or chest pain Cardiac diet Patient carries history of A. fib however not on anticoagulating agent currently on DVT prophylactic regimen Discontinue prophylactic IV Levaquin Attestations Medical Necessity Statement*: Anticipating discharge in next 48 hours Time Spent in Patient Care: less than 15 minutes Coding Level of Care Code Acute Archeologist Classical for [facility] Diagnoses Port wine stain Q82.5 Hypertension I10 Paroxysmal atrial fibrillation I48.0 Pneumonia due to COVID-19 virus U07.1; J12.82
[2021-04-02 17:14] LABS: Glucose Point of Care 292 mg/dL (70-110)
[2021-04-02] MEDS: fluticasone nasal spray 16gm Btl 2 SPRAY NASAL (17:33)
[2021-04-02] MEDS: enoxaparin 40 mg/0.4 mL Syringe SUBCUT (17:33)
[2021-04-02] MEDS: remdesivir 100 MG in sodium chloride 0.9% (100 ml) 80 ML 200 MG IV (17:34)
--- NOTE | 2021-04-02 18:28 | PC.NURSE ---
This nurse went in to stop IV fluids and flush IV line. Once entering this nurse noted that patient had disconnected tubing, pulled in out of the machine and had untaped J-loop from hand. This nurse educated patient on importance of keeping line clean and secure to make sure IV does not have to be restarted for the third time.
[2021-04-02 21:04] LABS: Glucose Point of Care 208 mg/dL (70-110)
[2021-04-03] VITALS (13 sets, daily range): BP systolic 124–143; BP diastolic 68–82; PULSE 4–165; RESP 17–40; TEMP 36.8–37.2; O2SAT 85–95
[2021-04-03] MEDS: ipratropium-albuterol 3 mL Neb INHALATION ×4 (02:33→21:40)
[2021-04-03 05:26] LABS: Basophils % 0.3 %; Eosinophils % 0.5 %; Hematocrit 41.6 % (37.0-47.0); Hemoglobin 13.2 g/dL (11.5-15.3); Lymphocytes # 1.1 10^3/uL (0.8-4.8); Lymphocytes % 27.2 %; Mean Corpuscular HGB Conc 31.7 g/dL (30.0-36.0); Mean Corpuscular Hemoglobin 26.2 pg (28.0-34.0); Mean Corpuscular Volume 82.5 fl (81-99); Mean Platelet Volume 9.4 fL (7.4-10.4); Monocytes # 0.3 10^3/uL (0.2-0.9); Monocytes % 8.7 %; Neutrophils # 2.45 10^3/uL (1.8-7.7); Neutrophils % 62.3 %; Nucleated Red Blood Cells % 0 %; Platelet Count 392 10^3/cmm (130-400); Red Blood Count 5.04 10^6/uL (4.1-5.3); Red Cell Distribution Width 12.9 % (12.1-15.1); White Blood Count 3.9 10^3/uL (4.0-10.0)
[2021-04-03 05:43] LABS: Procalcitonin 0.03 ng/mL (0-0.5)
[2021-04-03 05:55] LABS: Anion Gap 15.9 (5-19); Blood Urea Nitrogen 13 mg/dL (6-20); C Reactive Protein 16.7 mg/L (0.0-4.9); Calcium 8.5 mg/dL (8.5-10.5); Carbon Dioxide 25 mmol/L (22-29); Chloride 98 mmol/L (98-107); Creatinine Clr Calc Pharmacy 151.3945; Glomerular Filtration Rate 103.8 mL/min (90-130); Glucose 118 mg/dL (65-115); Osmolality Calculated 281 mOsm/kg (285-295); Potassium 3.9 mmol/L (3.5-5.1); Sodium 135 mmol/L (136-145)
[2021-04-03 06:30] LABS: Glucose Point of Care 117 mg/dL (70-110)
[2021-04-03] MEDS: budesonide 0.5 mg/2 mL Neb INHALATION ×2 (08:46→21:41)
[2021-04-03] MEDS: dexamethasone 10 mg/mL INJ 6 MG IVP (10:06)
[2021-04-03] MEDS: famotidine 20 mg Tablet PO ×2 (10:07→17:28)
[2021-04-03] MEDS: multivitamin therapeutic Tablet 1 TAB PO (10:07)
[2021-04-03] MEDS: fluticasone nasal spray 16gm Btl 2 SPRAY NASAL ×2 (10:07→17:12)
[2021-04-03 11:21] LABS: Glucose Point of Care 188 mg/dL (70-110)
[2021-04-03] MEDS: insulin lispro 100 unit/1 mL SUBCUT ×3 (12:56→22:01)
--- NOTE | 2021-04-03 14:40 | PM.PN ---
Subjective Subjective: Interval history: She was stating that she wants mcdaniels, and requested her family members to bring some She also has grapefruit sitting on her desk as well Afebrile Overnight her oxygen requirement has worsened from 6 L to 8 L and this morning she is requiring 10 L to keep O2 saturation between 89 to 90% She gets extremely short of breath on minimal activities Complaining of fatigue and lethargy Vitals/I&O/Wt Last Vital Signs Temp 98.4 F 04/03/21 07:40 Pulse 76 04/03/21 11:20 Resp 18 04/03/21 11:20 BP 124/72 04/03/21 11:20 Pulse Ox 89 L 04/03/21 11:20 04/02/21 04/03/21 04/03/21 22:59 06:59 14:59 Intake Total 1400 / 2590 240 / 240 Output Total 550 / 550 450 / 450 Balance 1400 / 2590 -550 / 2040 -210 / -210 Physical Exam Narrative: EXAM NARRATIVE: Patient was sitting in her recliner Saturating well on 10 L nasal cannula Vaginal adventitious rhonchi noted Abdomen distended with obesity Port wine stain left facial side S1, S2 Lower symmetry no edema Data : 04/03/21 04:22 04/03/21 04:22 Micro: Microbiology 03/30/21 23:08 Gram Stain - Final Sputum - Expectorated Sputum Sputum Culture - Final A&P Assessment and plan (1) Port wine stain: Status: Acute (2) Hypertension: Status: Acute (3) Paroxysmal atrial fibrillation: Status: Acute (4) Pneumonia due to COVID-19 virus: Status: Acute Additional A&P Information COVID-19 related hypoxia Oxygen requirement has worsened from 6 to 8 L overnight and this morning she is requiring 10 L We will request venous Dopplers Afebrile Hemodynamically stable Status post Actemra Continue IV steroids and Decadron for now Empirical antibiotic coverage was discontinued yesterday Limited resuscitation Diet consistent carbohydrate Last dose of remdesivir tomorrow Plan to discharge home once O2, respiratory 5 to 6 L currently she is very tired and lethargic which she is attributing to remdesivir , I do believe her symptoms are secondary to COVID-19 and not remdesivir She was requesting mcdaniels meat Attestations Medical Necessity Statement*: Oxygen requirement has worsened Time Spent in Patient Care: 16 - 35 minutes Coding Level of Care Code Acute Engineering Intern for [facility] Diagnoses Port wine stain Q82.5 Hypertension I10 Paroxysmal atrial fibrillation I48.0 Pneumonia due to COVID-19 virus U07.1; J12.82
[2021-04-03 17:23] LABS: Glucose Point of Care 274 mg/dL (70-110)
[2021-04-03] MEDS: enoxaparin 40 mg/0.4 mL Syringe SUBCUT (17:28)
[2021-04-03 21:07] LABS: Glucose Point of Care 209 mg/dL (70-110)
[2021-04-04] VITALS (14 sets, daily range): BP systolic 114–154; BP diastolic 64–78; PULSE 68–96; RESP 16–26; TEMP 36.7–36.9; O2SAT 86–94
[2021-04-04] MEDS: ipratropium-albuterol 3 mL Neb INHALATION ×4 (03:22→20:13)
[2021-04-04 03:53] LABS: Basophils % 0.5 %; Eosinophils # 0.1 10^3/uL (0.0-0.8); Eosinophils % 1.2 %; Hematocrit 41.9 % (37.0-47.0); Hemoglobin 13.2 g/dL (11.5-15.3); Lymphocytes # 1.4 10^3/uL (0.8-4.8); Lymphocytes % 24.5 %; Mean Corpuscular HGB Conc 31.5 g/dL (30.0-36.0); Mean Corpuscular Hemoglobin 26.6 pg (28.0-34.0); Mean Corpuscular Volume 84.3 fl (81-99); Mean Platelet Volume 9.1 fL (7.4-10.4); Monocytes # 0.4 10^3/uL (0.2-0.9); Monocytes % 7.6 %; Neutrophils # 3.66 10^3/uL (1.8-7.7); Neutrophils % 65.1 %; Nucleated Red Blood Cells % 0 %; Platelet Count 427 10^3/cmm (130-400); Red Blood Count 4.97 10^6/uL (4.1-5.3); Red Cell Distribution Width 12.9 % (12.1-15.1); White Blood Count 5.6 10^3/uL (4.0-10.0)
[2021-04-04 04:27] LABS: Procalcitonin 0.02 ng/mL (0-0.5)
[2021-04-04 04:42] LABS: Blood Urea Nitrogen 12 mg/dL (6-20); C Reactive Protein 9.4 mg/L (0.0-4.9); Calcium 8.5 mg/dL (8.5-10.5); Carbon Dioxide 23 mmol/L (22-29); Chloride 99 mmol/L (98-107); Glomerular Filtration Rate 128.1 mL/min (90-130); Glucose 129 mg/dL (65-115); Osmolality Calculated 281 mOsm/kg (285-295); Sodium 135 mmol/L (136-145)
[2021-04-04 06:22] LABS: Glucose Point of Care 147 mg/dL (70-110)
[2021-04-04] MEDS: multivitamin therapeutic Tablet 1 TAB PO (08:18)
[2021-04-04] MEDS: famotidine 20 mg Tablet PO ×2 (08:18→17:54)
[2021-04-04] MEDS: dexamethasone 10 mg/mL INJ 6 MG IVP (08:18)
--- NOTE | 2021-04-04 08:22 | XRR_ITS ---
PROCEDURE INFORMATION: Exam: XR Chest Exam date and time: 04/04/2021 8:22 AM Age: 55 years old Clinical indication: Other: Oxygen requirement not coming down TECHNIQUE: Imaging protocol: XR of the chest. Views: 1 view. COMPARISON: CR XR chest 1V portable [id number] 03/30/2021 9:51 AM FINDINGS: Lungs: Persistent bilateral airspace opacities. No large pleural effusion or pneumothorax. Pleural spaces: See Lungs finding. Heart/Mediastinum: Stable cardiomediastinal silhouette. Bones/joints: No acute osseous injury identified. XR/XR chest 1V portable [id number] IMPRESSION: Persistent bilateral airspace opacities. Radiation Dose CTDIVOL = (mGy): DLP = (mGy-cm)
[2021-04-04] MEDS: fluticasone nasal spray 16gm Btl 2 SPRAY NASAL (09:00)
[2021-04-04] MEDS: budesonide 0.5 mg/2 mL Neb INHALATION ×2 (09:38→20:13)
[2021-04-04 11:34] LABS: Glucose Point of Care 231 mg/dL (70-110)
[2021-04-04] MEDS: insulin lispro 100 unit/1 mL SUBCUT ×3 (11:47→21:20)
--- NOTE | 2021-04-04 13:47 | PM.PN ---
Subjective Subjective: Interval history: Seen this morning. Patient is still requiring 10 L high flow nasal cannula. Chest x-ray shows persistent bilateral airspace opacities. It was reported by nursing staff that patient is refusing to take a remdesivir. I did talk to her about baricitinib this morning and she agrees to try it. Vitals/I&O/Wt Last Vital Signs Temp 98.3 F 04/04/21 11:33 Pulse 81 04/04/21 11:33 Resp 16 04/04/21 11:33 BP 154/74 04/04/21 11:33 Pulse Ox 91 04/04/21 11:33 04/03/21 04/04/21 04/04/21 22:59 06:59 14:59 Intake Total 720 / 960 240 / 240 Output Total 500 / 950 500 / 1450 Balance 220 / 10 -500 / -490 240 / 240 Physical Exam Narrative: EXAM NARRATIVE: Patient was sitting up in bed, saturating well on 10 L nasal cannula Lungs mainly clear to auscultation but does have coarse breath sounds rhonchi at the bases bilaterally. No conversational dyspnea appears comfortable on 10 L. Abdomen soft nontender, obese rounded abdomen due to obesity Port wine stain left side of face S1-S2 regular rate rhythm Lower extremity no edema noted. Data : 04/04/21 02:49 04/04/21 02:49 Micro: Microbiology 03/30/21 10:30 Blood Culture - Final Blood NO GROWTH AFTER 5 DAYS 03/30/21 10:30 Blood Culture - Final Blood NO GROWTH AFTER 5 DAYS A&P Assessment and plan (1) Acute respiratory failure with hypoxia: Status: Acute (2) Port wine stain: Status: Acute (3) Hypertension: Status: Acute (4) Paroxysmal atrial fibrillation: Status: Acute (5) Pneumonia due to COVID-19 virus: Status: Acute Additional A&P Information COVID-19 related hypoxia Oxygen requirement is remaining at 10 L nasal cannula. Venous Dopplers pending, CTA chest rule out PE on admission. D-dimer low on admission 0.35. Afebrile Hemodynamically stable Status post Actemra Continue IV steroids remdesivir for now. Add baricitinib. Patient is refusing remdesivir. Empirical antibiotic coverage discontinued. There is no evidence of bacterial pneumonia at this time. Limited resuscitation Diet consistent carbohydrate Plan to discharge home once O2, respiratory 5 to 6 L currently she is very tired and lethargic which she is attributing to remdesivir Attestations Medical Necessity Statement*: Oxygen requirement still high, greater than 48-hour stay anticipated. Coding Level of Care Code Acute Belt Tender for [facility] Fwd Diagnoses Acute respiratory failure with hypoxia J96.01 Port wine stain Q82.5 Hypertension I10 Paroxysmal atrial fibrillation I48.0 Pneumonia due to COVID-19 virus U07.1; J12.82
[2021-04-04 17:14] LABS: Glucose Point of Care 252 mg/dL (70-110)
[2021-04-04] MEDS: enoxaparin 40 mg/0.4 mL Syringe SUBCUT (17:54)
[2021-04-04] MEDS: lanolin oint 7 gm 1 APPLIC TOPICAL (18:46)
--- NOTE | 2021-04-04 18:51 | PC.NURSE ---
Report to Eda GONZALES at this time.
--- NOTE | 2021-04-04 21:18 | PC.NURSE ---
Blood sugar didn't order puller from glucometer. Patient blood sugar is 273. 8 units of humalog was given.
[2021-04-04 21:30] LABS: Glucose Point of Care 273 mg/dL (70-110)
[2021-04-05] VITALS (13 sets, daily range): BP systolic 129–149; BP diastolic 66–88; PULSE 71–99; RESP 17–24; TEMP 36.7–37.2; O2SAT 84–92
[2021-04-05] MEDS: ipratropium-albuterol 3 mL Neb INHALATION ×4 (03:16→22:33)
[2021-04-05 06:12] LABS: Basophils % 0.5 %; Eosinophils # 0.2 10^3/uL (0.0-0.8); Hematocrit 41.7 % (37.0-47.0); Hemoglobin 13.2 g/dL (11.5-15.3); Lymphocytes # 2.1 10^3/uL (0.8-4.8); Lymphocytes % 24.9 %; Mean Corpuscular HGB Conc 31.7 g/dL (30.0-36.0); Mean Corpuscular Hemoglobin 25.9 pg (28.0-34.0); Mean Corpuscular Volume 81.8 fl (81-99); Mean Platelet Volume 8.7 fL (7.4-10.4); Monocytes # 0.5 10^3/uL (0.2-0.9); Monocytes % 5.5 %; Neutrophils # 5.43 10^3/uL (1.8-7.7); Neutrophils % 64.9 %; Nucleated Red Blood Cells % 0 %; Platelet Count 448 10^3/cmm (130-400); Red Cell Distribution Width 12.7 % (12.1-15.1); White Blood Count 8.4 10^3/uL (4.0-10.0)
[2021-04-05 06:46] LABS: Glucose Point of Care 139 mg/dL (70-110)
[2021-04-05 07:27] LABS: Alanine Aminotransferase 37 U/L (0-33); Albumin Level 3.2 g/dL (3.5-5.2); Alkaline Phosphatase 50 IU/L (35-105); Aspartate Amino Transferase 39 U/L (0-32); Blood Urea Nitrogen 13 mg/dL (6-20); Calcium 8.4 mg/dL (8.5-10.5); Carbon Dioxide 24 mmol/L (22-29); Creatinine Clr Calc Pharmacy 151.3945; Glomerular Filtration Rate 103.8 mL/min (90-130); Glucose 152 mg/dL (65-115); Magnesium 2.2 mg/dL (1.7-2.3); Total Bilirubin 0.4 mg/dL (0.15-1.2); Total Protein 6.2 g/dL (6.6-8.7)
[2021-04-05 08:17] LABS: Chloride 99 mmol/L (98-107); Osmolality Calculated 287 mOsm/kg (285-295); Sodium 137 mmol/L (136-145)
[2021-04-05] MEDS: multivitamin therapeutic Tablet 1 TAB PO (08:59)
[2021-04-05] MEDS: famotidine 20 mg Tablet PO ×2 (08:59→17:57)
[2021-04-05] MEDS: dexamethasone 10 mg/mL INJ 6 MG IVP (09:00)
[2021-04-05] MEDS: budesonide 0.5 mg/2 mL Neb INHALATION ×2 (09:24→22:33)
[2021-04-05 12:23] LABS: Glucose Point of Care 175 mg/dL (70-110)
--- NOTE | 2021-04-05 13:50 | USCV_ITS ---
Mary Elise Age: 55 Gender: F : 1965 Exam Date: 04/05/2021 09:18 Ordering Phys: Inna Briscoe MD Technologist: Marilu Cuevas Exam Location: [facility] [place]_ Indication: COVID, EVAL FOR DVT PROCEDURES: Venous duplex imaging was performed in bilateral lower extremities. The following venous structures were evaluated: common femoral vein, profunda vein, proximal portion of the greater saphenous vein, superficial femoral vein, and the popliteal vein. In addition, the posterior tibial and peroneal trunk were evaluated. Serial compression, augmentation maneuvers, and spectral Doppler flow evaluation were performed. FINDINGS: Normal 2-D Doppler and augmentation and compressibility throughout the lower extremity venous structures. Additional imaging through the proximal calf veins also reveals no thrombus. Limited evaluation of the greater saphenous vein is patent with no thrombus. CONCLUSIONS No DVT bilateral lower extremities. Dr. Darcie Pollack DO (Electronically Signed) Final Date: 05 April 2021 10:34 S
--- NOTE | 2021-04-05 16:50 | PM.PN ---
Subjective Subjective: Interval history: Seen this afternoon. Unable to see patients this morning. SHe is down to 9 L high flow nasal cannula, saturating 89 to 90%. She is requesting to go home. She says she will not go to an LTAC at any cost. She states that she is pretty confident she can take care of herself at home. She also stood up in the room and was saturating 92% upon standing up. She did desaturate briefly down to 87 but saturation came right back up. She also states she went to the bathroom for about 10 minutes and she felt fine. She would like to go home on her current oxygen settings. Vitals/I&O/Wt Last Vital Signs Temp 98.7 F 04/05/21 15:19 Pulse 95 04/05/21 15:19 Resp 24 H 04/05/21 15:19 BP 136/88 04/05/21 15:19 Pulse Ox 89 L 04/05/21 15:19 04/05/21 04/05/21 04/05/21 06:59 14:59 22:59 Intake Total 220 / 220 Balance 220 / 220 Physical Exam Narrative: EXAM NARRATIVE: Patient was sitting up in bed, saturating well on 9 L nasal cannula Lungs mainly clear to auscultation but does have coarse breath sounds rhonchi at the bases bilaterally. No conversational dyspnea appears comfortable on 9 L. Abdomen soft nontender, obese rounded abdomen due to obesity Port wine stain left side of face S1-S2 regular rate rhythm Lower extremity no edema noted. Data : 04/06/21 05:50 04/06/21 05:50 A&P Assessment and plan (1) Acute respiratory failure with hypoxia: Status: Acute (2) Port wine stain: Status: Acute (3) Hypertension: Patient stopped her lisinopril several days ago. As blood pressure is within normal limits we will not restart currently. Status: Acute (4) Paroxysmal atrial fibrillation: Status: Acute (5) Pneumonia due to COVID-19 virus: Status: Acute Additional A&P Information COVID-19 related hypoxia Oxygen requirement is remaining at 9 L nasal cannula. Venous Dopplers pending, CTA chest rule out PE on admission. D-dimer low on admission 0.35. Afebrile Hemodynamically stable Status post Actemra Continue IV steroids remdesivir for now. Baricitinib has been stopped. Patient is refusing remdesivir. Empirical antibiotic coverage discontinued. There is no evidence of bacterial pneumonia at this time. Limited resuscitation Diet consistent carbohydrate Plan to discharge home once O2, respiratory 5 to 6 L . I have convinced patient to do a home oxygen evaluation in the a.m. and then decide on further plan. Attestations Medical Necessity Statement*: Greater than 24-hour stay. Coding Level of Care Code Acute Table Worker Packager for [facility] Fwd Diagnoses Acute respiratory failure with hypoxia J96.01 Port wine stain Q82.5 Hypertension I10 Paroxysmal atrial fibrillation I48.0 Pneumonia due to COVID-19 virus U07.1; J12.82
[2021-04-05 17:53] LABS: Glucose Point of Care 256 mg/dL (70-110)
[2021-04-05] MEDS: enoxaparin 40 mg/0.4 mL Syringe SUBCUT (17:57)
[2021-04-05] MEDS: insulin lispro 100 unit/1 mL SUBCUT ×2 (17:58→22:15)
--- NOTE | 2021-04-05 18:54 | NUR.SHIFT ---
Report to night shift manager at this time.
[2021-04-05 21:34] LABS: Glucose Point of Care 216 mg/dL (70-110)
[2021-04-06] VITALS (10 sets, daily range): BP systolic 112–149; BP diastolic 61–71; PULSE 72–91; RESP 16–18; TEMP 36.6–37.1; O2SAT 78–93
[2021-04-06] MEDS: ipratropium-albuterol 3 mL Neb INHALATION ×2 (03:19→10:05)
[2021-04-06 04:10] LABS: ABG PCO2 41.2 mmHg (35-45); ABG PH Result 7.43 (7.35-7.45); Base Excess ABG 2.4 mmol/L (-2.0-2.0); Blood Gas Allen Test pos; Blood Gas Operator Identificat glc; HCO3 ABG 27.1 mmol/L (22-26); Oxygen Saturation ABG 90; PO2 ABG 56.8 mmHg (80.0-100.0); Potassium Level - ABG 3.8 mmol/L (3.5-5.0)
[2021-04-06 04:11] LABS: Arterial Blood Gas Hematocrit 43.6 % (37-47); Blood Gas Sample Type Arterial; Oxygen Device nc
[2021-04-06 04:12] LABS: Alveolar-Arterial Oxygen Gradi 277.2 mmHg (5-10); Carboxyhemoglobin 0.6 %THgb (0.4-20.1); HGB O2 Sat 89.2 % (95-100); Ionized Calcium Level - ABG 1.2 mmol/L (1.1-1.4); Methemoglobin 0.3 % (0.4-1.5); Total Hemoglobin 14.2 g/dL (12-16)
[2021-04-06 06:25] LABS: Basophils % 0.3 %; Eosinophils # 0.2 10^3/uL (0.0-0.8); Eosinophils % 2.4 %; Hematocrit 41.3 % (37.0-47.0); Hemoglobin 13.2 g/dL (11.5-15.3); Lymphocytes % 22.5 %; Mean Corpuscular Hemoglobin 26.5 pg (28.0-34.0); Mean Corpuscular Volume 82.9 fl (81-99); Mean Platelet Volume 8.8 fL (7.4-10.4); Monocytes # 0.5 10^3/uL (0.2-0.9); Monocytes % 5.8 %; Neutrophils # 5.88 10^3/uL (1.8-7.7); Nucleated Red Blood Cells % 0 %; Platelet Count 412 10^3/cmm (130-400); Red Blood Count 4.98 10^6/uL (4.1-5.3); White Blood Count 8.8 10^3/uL (4.0-10.0)
[2021-04-06 06:33] LABS: Glucose Point of Care 143 mg/dL (70-110)
[2021-04-06 06:51] LABS: Anion Gap 14.8 (5-19); Blood Urea Nitrogen 13 mg/dL (6-20); Calcium 8.3 mg/dL (8.5-10.5); Carbon Dioxide 25 mmol/L (22-29); Chloride 99 mmol/L (98-107); Creatinine Clr Calc Pharmacy 151.3945; Glomerular Filtration Rate 103.8 mL/min (90-130); Glucose 133 mg/dL (65-115); Magnesium 2.1 mg/dL (1.7-2.3); Osmolality Calculated 282 mOsm/kg (285-295); Potassium 3.8 mmol/L (3.5-5.1); Sodium 135 mmol/L (136-145)
[2021-04-06] MEDS: dexamethasone 4 mg Tablet 6 MG PO (08:37)
[2021-04-06] MEDS: multivitamin therapeutic Tablet 1 TAB PO (08:37)
[2021-04-06] MEDS: famotidine 20 mg Tablet PO (08:37)
[2021-04-06] MEDS: fluticasone nasal spray 16gm Btl 2 SPRAY NASAL (08:38)
[2021-04-06] MEDS: budesonide 0.5 mg/2 mL Neb INHALATION (10:05)
[2021-04-06 11:27] LABS: Glucose Point of Care 177 mg/dL (70-110)
--- NOTE | 2021-04-06 12:18 | P.DS_ITS ---
Discharge Providers Date of Admission: 03/30/21 12:08 Date of Discharge: April 06, 2021 Attending Provider at Admission: Eric Winters MD Attending Provider at Discharge: Inna Briscoe MD Diagnoses at Discharge Discharge Diagnosis (1) Acute respiratory failure with hypoxia: Status: Acute (2) Port wine stain: Status: Acute (3) Hypertension: Status: Acute (4) Paroxysmal atrial fibrillation: Status: Acute (5) Pneumonia due to COVID-19 virus: Status: Acute Reason for Visit Reason for Visit: SOB Hospital Course Hospital Course HPI As per Dr. Winters nae Elise is a 55 year old female who presents to the emergency department with history of Covid since around March 22. She states she had a positive test at [place] on March 24. She has had symptoms of fever, anorexia, cough, shortness of breath, loss of smell. Symptoms worsened to where she was started on home oxygen 2 days ago, and worsened further still. She has not been vaccinated. CoursE: Patient was admitted for COVID-19 pneumonia. Oxygen requirement remaining at night liter nasal cannula. CTA ruled out PE at admission. Afebrile. She got Actemra IV dexamethasone which was later switched to oral dexamethasone. She declined to take remdesivir. Empiric antibiotic started initially but then discontinued as there was no evidence of bacterial pneumonia. She had home oxygen evaluation and requires 8 L on exertion and 7 to 8 L at rest. Patient would like to go home and has declined to go to LTAC. She will be given an oxygen concentration machine as per her request that goes up to 10 L. Patient will be discharged with albuterol inhaler, prednisone taper for another 3 days. She was encouraged to come back to the ER if symptoms worsen. Physical Exam Narrative: EXAM NARRATIVE: Patient was sitting up in bed, saturating well on 8 L nasal cannula Lungs mainly clear to auscultation but does have coarse breath sounds rhonchi at the bases bilaterally. No conversational dyspnea appears comfortable on 8 L. Abdomen soft nontender, obese rounded abdomen due to obesity Port wine stain left side of face S1-S2 regular rate rhythm Lower extremity no edema noted. Discharge Data Data Completed and Pending: Completed Studies During Hospitalization Category Date Time Status CT angio chest PE protcl [id number] Stat Cat Scan 03/30/21 09:39 Completed XR chest 1V mara ble [id number] Stat Exams 03/30/21 09:40 Completed XR chest 1V mara ble [id number] Urgent Exams 04/04/21 08:22 [place] [id number] Routin e Ultrasound 04/05/21 13:50 Completed Pending at discharge Category Date Time Status MRSA by PCR J[facility] 03/30/21 16:44 Uncollected Labs from last 24 hours 04/06/21 04/06/21 04/06/21 10:35 06:18 05:50 WBC RBC Hgb Hct MCV MCH MCHC RDW Plt Count MPV Neut % (Auto) Lymph % (Auto) Brooke % (Auto) Eos % (Auto) Baso % (Auto) Neut # (Auto) Lymph # (Auto) Brooke # (Auto) Eos # (Auto) Baso # (Auto) Nucleated RBC % (a uto) Nucleated RBCs # Specimen Type Sample Site ABG pH ABG pCO2 ABG pO2 ABG HCO3 ABG O2 Saturation ABG Base Excess Pablo Test A-a O2 Gradient Hematocrit Hgb O2 Saturation Carboxyhemoglobin Methemoglobin Total Hemoglobin Sodium 135 L Potassium 3.8 Glucose 133 H Ionized Calcium O2 Delivery Device FiO2 Artificial Marble Worker ID Blood Gas Notified Time Chloride 99 Carbon Dioxide 25 Anion Gap 14.8 BUN 13 Creatinine 0.6 GFR Calculation 103.8 POC Glucose 177 H 143 H Calculated Osmolal ity 282 L Calcium 8.3 L Magnesium 2.1 04/06/21 04/06/21 04/05/21 05:50 03:43 21:30 WBC 8.8 RBC 4.98 Hgb 13.2 Hct 41.3 MCV 82.9 MCH 26.5 L MCHC 32.0 RDW 13.0 Plt Count 412 H MPV 8.8 Neut % (Auto) 67.0 Lymph % (Auto) 22.5 Brooke % (Auto) 5.8 Eos % (Auto) 2.4 Baso % (Auto) 0.3 Neut # (Auto) 5.88 Lymph # (Auto) 2.0 Brooke # (Auto) 0.5 Eos # (Auto) 0.2 Baso # (Auto) 0.0 Nucleated RBC % (a uto) 0 Nucleated RBCs # 0.0 Specimen Type Arterial Sample Site Radial,left ABG pH 7.43 ABG pCO2 41.2 ABG pO2 56.8 L ABG HCO3 27.1 H ABG O2 Saturation 90 ABG Base Excess 2.4 H Pablo Test pos A-a O2 Gradient 277.2 H Hematocrit 43.6 Hgb O2 Saturation 89.2 L Carboxyhemoglobin 0.6 Methemoglobin 0.3 L Total Hemoglobin 14.2 Sodium 138.0 Potassium 3.8 Glucose 160.0 H Ionized Calcium 1.2 O2 Delivery Device nc FiO2 55.0 Artificial Marble Worker ID glc Blood Gas Notified Time 0411 Chloride Carbon Dioxide Anion Gap BUN Creatinine GFR Calculation POC Glucose 216 H Calculated Osmolal ity Calcium Magnesium 04/05/21 04/05/21 17:51 10:52 WBC RBC Hgb Hct MCV MCH MCHC RDW Plt Count MPV Neut % (Auto) Lymph % (Auto) Brooke % (Auto) Eos % (Auto) Baso % (Auto) Neut # (Auto) Lymph # (Auto) Brooke # (Auto) Eos # (Auto) Baso # (Auto) Nucleated RBC % (a uto) Nucleated RBCs # Specimen Type Sample Site ABG pH ABG pCO2 ABG pO2 ABG HCO3 ABG O2 Saturation ABG Base Excess Pablo Test A-a O2 Gradient Hematocrit Hgb O2 Saturation Carboxyhemoglobin Methemoglobin Total Hemoglobin Sodium Potassium Glucose Ionized Calcium O2 Delivery Device FiO2 Artificial Marble Worker ID Blood Gas Notified Time Chloride Carbon Dioxide Anion Gap BUN Creatinine GFR Calculation POC Glucose 256 H 175 H Calculated Osmolal ity Calcium Magnesium Vitals: Last Vital Signs Temp 98.0 F 04/06/21 11:20 Pulse 82 04/06/21 11:20 Resp 18 04/06/21 11:20 BP 149/71 04/06/21 11:20 Pulse Ox 92 04/06/21 11:20 Discharge Plan Discharge Patient Disposition: Home Condition: Stable Prescriptions: New Saline Mist 0.65 % Aerosol,Burns 1 spray nasal PRN PRN (Reason: Dryness) 30 Days Qty: 100 RF: 0 albuterol sulfate 90 mcg/actuation HFA aerosol inhaler 2 inh inhalation Q6H PRN (Reason: shortness of breath or wheezing) 30 Days Q ty: 8.5 RF: 0 prednisone 20 mg tablet 10 mg PO DAILY 5 Days Qty: 11 RF: 0 Continued flecainide 150 mg tablet 150 mg PO BID PRN (Reason: pt states she takes prn for a-fib taken a month ag) RF: 0 acetaminophen 500 mg Tablet 1,000 mg PO Q4H PRN (Reason: Pain) RF: 0 Changed lisinopril 10 mg tablet 10 mg PO DAILY Qty: 0 RF: 0 Discontinued hydroxychloroquine 200 mg tablet 200 mg PO BID RF: 0 Discharge Orders: Discharge Order (Routine); Ordered 04/06/21 Ordered By: Inna Briscoe Other Ambulatory Orders: DME: Oxygen (Order) Location: None Selected Ordered By: Inna Briscoe Referrals: Marilyn Felix NP [Primary Care Provider] - 04/13/21 11:00 am (This is patients PCP) Discharge Diet: Regular Discharge Activity: Increase activity as tolerated and Oxygen as instructed Patient Instructions: Albuterol (By breathing), Prednisone (By mouth), Using Oxygen at Home (GEN), Hypoxia (GEN), Opioid Safety Activity Restrictions/Additional Instructions: 21 day quarantine from first day of onset of symptoms Please return to ER if symptoms worsen (increasing shortness of breath, cough, fever, diarrhea) or any new symptoms develops. Please use home oxygen as directed. Discharge Attestations Time Spent in Discharge Care*: less than 30 min Quality Metrics Clinical Quality Measures During this hospital stay, did patient experience: None Coding Level of Care Code Acute Chg FW DC note Diagnoses Acute respiratory failure with hypoxia J96.01 Port wine stain Q82.5 Hypertension I10 Paroxysmal atrial fibrillation I48.0 Pneumonia due to COVID-19 virus U07.1; J12.82
--- NOTE | 2021-04-06 15:00 | PC.NURSE ---
IV removed intact. Patient tolerated well.
--- NOTE | 2021-04-06 15:04 | PC.NURSE ---
senior medical writer called patient's Frankie at [phone], man answered phone and was very upset that he has been getting calls for a week. senior medical writer said sorry for calling and I will get it fixed. senior medical writer talked to patient and she said her 's number is [phone]. Supply Chain Tech called admissions and got phone number corrected in computer. senior medical writer called patient's at [phone] and explained patient is being discharged and will need to be picked up at ambulance bay and when he gets there to please call us. patient's said ok.
--- NOTE | 2021-04-06 15:08 | PC.NURSE ---
patient given discharge instructions and verbalized understanding of instructions.
== END 2021-04-06 16:34 | disposition home or self-care (01) | DRG 177 ==
LOC: ER 12:34 → ER IP 15:37 → MEDSURG 17:31
PROVIDERS: Internal Medicine; Admitting Provider Internal Medicine; Emergency Provider Family Medicine; PCP Nurse Practitioner Family; Visit Provider Internal Medicine
DX: U07.1 COVID-19 (principal); J12.82 Pneumonia due to coronavirus disease 2019; J96.01 Acute respiratory failure with hypoxia; Z68.41 Body mass index [BMI] 40.0-44.9, adult; E87.1 Hypo-osmolality and hyponatremia; I10 Essential (primary) hypertension; E66.9 Obesity, unspecified; I48.0 Paroxysmal atrial fibrillation; Q82.5 Congenital non-neoplastic nevus; I51.7 Cardiomegaly; R73.9 Hyperglycemia, unspecified
CPT/HCPCS: 36415; 36416; 36600; 71045; 71275; 80048; 80051; 80053; 81003; 82330; 82550; 82805; 82962; 83036; 83605; 83735; 83880; 84145; 84443; 85025; 85378; 86140; 86403; 87040; 87070; 87205; 93005; 93970; 94640; 96365; 96367; 96372; 99285; J1100; J1650; J1815; J1956; J2405; J3262; J3535; J7626; J8540; Q9967